=== PATIENT | male | born 1995 | race Asian ===

== ENCOUNTER 2018-09-13 16:51 | Emergency (ER) | payer BC, OTHER ==
--- NOTE | 2018-09-13 18:52 | UC ---
Truncal Trauma HPI - HPI Summary HPI Summary: The patient is a 22-year-old male with left-sided chest pain since the injury that occurred approximately a month ago. He injured his left lower anterior ribs while wrestling with a friend. He has persistent left-sided chest pain. Pain is worse when he bends over or redness on his left side. Times hurts to take a deep breath. He has had no fever or cough. - History Of Current Complaint Chief Complaint: UCBackPain Stated Complaint: RIB PAIN X 1 MONTH-PAINFUL TO BREATHE Time Seen by Provider: 09/13/18 18:26 Onset/Duration: Sudden Onset, Lasting Weeks Onset Of Pain: Immediate Severity Initially: Severe Severity Currently: Severe Pain Intensity: 8 Pain Scale Used: 0-10 Numeric Mechanism Of Injury: Blunt Trauma Aggravating Factor(s): Movement, Deep Breathing Alleviating factor(s): Rest Associated Signs And Symptoms: Positive: Chest Pain Torso: 1 - tender/pain with rib springing - Allergies/Home Medications Allergies/Adverse Reactions: Allergies Allergy/AdvReac Type Severity Reaction Status Date / Time peanut Allergy Unknown MOUTH Verified 09/13/18 18:18 SWELLS Home Medications: Home Medications Ibuprofen TAB* [Advil TAB*] 200 mg PO Q6H PRN 09/13/18 [History Confirmed ] PMH/Surg Hx/FS Hx/Imm Hx Previously Healthy: Yes - Surgical History Surgical History: Yes Surgery Procedure, Year, and Place: wisdom teeth extractions - Family History Known Family History: Positive: Hypertension - Social History Alcohol Use: None Substance Use Type: None Smoking Status (MU): Current Some Day Smoker Type: Cigarettes Amount Used/How Often: 2 CIGS A MONTH Have You Smoked in the Last Year: Yes Review of Systems Constitutional: Negative Skin: Negative Eyes: Negative ENT: Negative Respiratory: Negative Cardiovascular: Chest Pain Gastrointestinal: Negative Genitourinary: Negative Motor: Negative Neurovascular: Negative Musculoskeletal: Negative Neurological: Negative Psychological: Negative All Other Systems Reviewed And Are Negative: Yes Physical Exam Triage Information Reviewed: Yes Appearance: Well-Appearing, No Pain Distress, Well-Nourished Vital Signs: Initial Vital Signs Temp 98.3 F 09/13/18 18:19 Pulse 81 09/13/18 18:19 Resp 20 09/13/18 18:19 BP 135/81 09/13/18 18:19 Pulse Ox 100 09/13/18 18:19 Vital Signs Reviewed: Yes Eyes: Positive: Conjunctiva Clear ENT: Positive: Hearing grossly normal. Negative: Nasal congestion, Nasal drainage, Trismus, Muffled voice, Hoarse voice Neck: Positive: Supple, Nontender, No Lymphadenopathy Respiratory: Positive: Lungs clear, Normal breath sounds, No respiratory distress, No accessory muscle use. Negative: Chest non-tender Cardiovascular: Positive: RRR, No Murmur Abdomen Description: Positive: Nontender, No Organomegaly, Soft Musculoskeletal: Positive: ROM Intact, No Edema Neurological Exam: Normal Neurological: Positive: Alert Psychological Exam: Normal Skin Exam: Normal Diagnostics - Radiology No standard instances Xray Interpretation: Positive (See Comments) - healing left 10th rib fx, no ptx , no inflitrate Radiology Interpretation Completed By: ED Physician Truncal Trauma Course/Dx - Differential Dx/Diagnosis Provider Diagnoses: healing left 10th rib fracture Discharge - Sign-Out/Discharge Documenting (check all that apply): Patient Departure All imaging exams completed and their final reports reviewed: No - Discharge Plan Condition: Stable Disposition: HOME Patient Education Materials: Rib Fracture (ED) Referrals: KRZYSZTOF Tovar [Primary Care Provider] - 2 Weeks (recheck in 2-4 weeks if not better) Additional Instructions: aleve 2 pill twice daily with food for pain - Billing Disposition and Condition Condition: STABLE Disposition: Home
--- NOTE | 2018-09-14 07:50 | RAD ---
HISTORY: injury (one mon ago) COMPARISONS: None VIEWS: 6 , Frontal view of the chest with frontal and oblique views of the left hemithorax FINDINGS: There is no displaced rib fracture or pneumothorax. The visualized lungs are clear. A healing left seventh rib fracture noted in the preliminary assessment is no clearly appreciated on the current examination. IMPRESSION: NO DISPLACED RIB FRACTURE OR PNEUMOTHORAX. R2
--- NOTE | 2018-09-18 14:05 | UC ---
- Progress Note Progress Note: Patient Name: DAISY IRELAND Medical Record#: [id number] Ordering Physician: Fredy Mari MD Acct.#: [id number] : 1995 Age: 22 Sex: M Location: [facility] Exam Date: 09/13/181833 ADM Status: DEP ER Order Information: RIBS LT UNI W/PA CH MIN 3 VWS Accession Number: [id number] CPT: 22493 HISTORY: injury (one mon ago) COMPARISONS: None VIEWS: 6 , Frontal view of the chest with frontal and oblique views of the left hemithorax FINDINGS: There is no displaced rib fracture or pneumothorax. The visualized lungs are clear. A healing left seventh rib fracture noted in the preliminary assessment is no clearly appreciated on the current examination. IMPRESSION: NO DISPLACED RIB FRACTURE OR PNEUMOTHORAX. R2 <Electronically signed by Jabier Medina MD in [place]> 09/14/18746 Dictated By: Jabier Median MD Dictated Date/Time: 09/14/18746 Transcribed Date/Time: 09/14/18745 Copy to: CC:KRZYSZTOF FernandezMavis ; Fredy Mari MD Imaging - [facility] [address] [address] ph ([phone]) ph ([phone]) ph ([phone]) This report is only to be considered final once signed by the Provider(s) as displayed in the "<Electronically Signed by >" field (s). Absence of a signature indicates the report is in a draft status and still needs to be finalized. In the event this document was created by someone other than the signing Provider, the individual initiating the document will be listed in the "Entered by:" or "Dictated by:" hernandez. 1 of 1 Discharge - Sign-Out/Discharge Documenting (check all that apply): Post-Discharge Follow Up All imaging exams completed and their final reports reviewed: Yes - Discharge Plan Condition: Stable Disposition: HOME Patient Education Materials: Rib Fracture (ED) Referrals: KRZYSZTOF Tovar [Primary Care Provider] - 2 Weeks (recheck in 2-4 weeks if not better) Additional Instructions: aleve 2 pill twice daily with food for pain - Billing Disposition and Condition Condition: STABLE Disposition: Home
== END 2018-09-13 19:26 | disposition home or self-care (01) ==
LOC: UCCORT 16:51
DX: S22.32XA Fracture of one rib, left side, initial encounter for closed fracture (principal); Y93.72 Activity, wrestling; Y92.9 Unspecified place or not applicable; Z72.0 Tobacco use; Z91.010 Allergy to peanuts
CPT/HCPCS: 99201; G0463

== ENCOUNTER 2019-06-15 19:31 | Emergency (ER) | payer BC ==
[2019-06-15 19:45] VITALS: BP 152/77
--- NOTE | 2019-06-15 19:53 | UC ---
Ear Complaint HPI - HPI Summary HPI Summary: Pt presents with c/o left ear pain that began yesterday. Pt reports that he was recently on vacation and was swimming frequently. Pt states that pain radiates down left side of jaw. - History of Current Complaint Chief Complaint: UCEar Stated Complaint: LEFT EAR CONCERN Time Seen by Provider: 06/15/19 19:46 Hx Obtained From: Patient Onset/Duration: Sudden Onset, Lasting Days, Still Present Severity Initially: Mild Severity Currently: Moderate Pain Intensity: 3 Associated Signs/Symptoms: Positive: Hearing Loss, Swelling @ - Allergies/Home Medications Allergies/Adverse Reactions: Allergies Allergy/AdvReac Type Severity Reaction Status Date / Time peanut Allergy Unknown MOUTH Verified 06/15/19 19:41 SWELLS PMH/Surg Hx/FS Hx/Imm Hx Previously Healthy: Yes - Surgical History Surgical History: Yes Surgery Procedure, Year, and Place: wisdom teeth extractions - Family History Known Family History: Positive: Hypertension - Social History Occupation: Employed Full-time Lives: With Family Alcohol Use: Weekly Alcohol Amount: weekends Substance Use Type: None Smoking Status (MU): Current Some Day Smoker Type: Cigarettes Amount Used/How Often: 1 pack/month Have You Smoked in the Last Year: Yes - Immunization History Vaccination Up to Date: Yes Review of Systems All Other Systems Reviewed And Are Negative: Yes Constitutional: Positive: Negative Skin: Positive: Negative Eyes: Positive: Negative ENT: Positive: Ear Ache Respiratory: Positive: Negative Cardiovascular: Positive: Negative Gastrointestinal: Positive: Negative Genitourinary: Positive: Negative Motor: Positive: Negative Neurovascular: Positive: Negative Musculoskeletal: Positive: Negative Neurological: Positive: Negative Psychological: Positive: Negative Is Patient Immunocompromised?: No Physical Exam Triage Information Reviewed: Yes Appearance: Well-Appearing Vital Signs: Initial Vital Signs Temp 98.6 F 06/15/19 19:42 Pulse 79 06/15/19 19:42 Resp 16 06/15/19 19:42 BP 152/77 06/15/19 19:42 Pulse Ox 100 06/15/19 19:42 Vital Signs Reviewed: Yes Eye Exam: Normal ENT: Positive: Other - tragal tenderness, and outer ear canal swelling and mild erythema Dental Exam: Normal Neck: Positive: Enlarged Nodes @ - left maxillary Respiratory Exam: Normal Cardiovascular Exam: Normal Musculoskeletal Exam: Normal Neurological Exam: Normal Psychological Exam: Normal Skin Exam: Normal Ear Complaint Course/Dx - Differential Dx/Diagnosis Differential Diagnosis/HQI/PQRI: Otitis Externa, Otitis Media, Other - dental abscess Provider Diagnosis: Left otitis externa Discharge - Sign-Out/Discharge Documenting (check all that apply): Patient Departure All imaging exams completed and their final reports reviewed: No Studies - Discharge Plan Condition: Stable Disposition: HOME Prescriptions: Ciproflox/Dexameth OTIC.SUSP* [Ciprodex OTIC.SUSP*] 4 drop LEFT EAR Q6H 7 Days # 1 btl Patient Education Materials: Otitis Externa (ED) Referrals: Nguyen Sr MD [Primary Care Provider] - 3 Days - Billing Disposition and Condition Condition: STABLE Disposition: Home
== END 2019-06-15 19:57 | disposition home or self-care (01) ==
LOC: UCCORT 19:31
DX: H60.92 Unspecified otitis externa, left ear (principal); F17.210 Nicotine dependence, cigarettes, uncomplicated
CPT/HCPCS: 99212; G0463